=== PATIENT | male | born 1955 | race Caucasian/White ===

== ENCOUNTER 2022-11-22 17:02 | Inpatient (IN) | payer OTHER ==
[~2022-11-22] VITALS: Ht 175.3 cm; Wt 87.7 kg
[2022-11-22] MEDS: ACETAMINOPHEN 1000 MG/100 ML IV SCH ×2 (17:53→23:39)
[2022-11-22 18:04] LABS: BASOPHILS % 0.1 % (0.0-1.0); HEMATOCRIT 41.8 % (38.2-49.6); HEMOGLOBIN 13.9 g/dL (14.0-18.0); LYMPHOCYTES # (AUTO) 0.9 (1.0-3.2); LYMPHOCYTES % 4.2 % (18.0-39.1); MEAN CORPUSCULAR HEMOGLOBIN 30.5 pg (28-32); MEAN CORPUSCULAR HGB CONC 33.3 g/dL (31-35); MEAN CORPUSCULAR VOLUME 91.7 fL (81-99); MONOCYTES # (AUTO) 1.3 (0.2-0.8); MONOCYTES % 6.1 % (4.4-11.3); NEUTROPHILS # (AUTO) 19.4 (2.1-6.9); PLATELET COUNT 193 x10e3/uL (140-360); RED BLOOD COUNT 4.56 x10e6/uL (4.3-5.7); RED CELL DISTRIBUTION WIDTH 12.8 % (11.7-14.4)
[2022-11-22 18:24] LABS: ALBUMIN 3.2 g/dL (3.5-5.0); ALBUMIN/GLOBULIN RATIO 0.8 (0.8-2.0); ANION GAP 15.6 mmol/L (8-16); CALCIUM 8.8 mg/dL (8.4-10.2); CREATININE, SERUM 1.29 mg/dL (0.72-1.25); POTASSIUM 4.6 mmol/L (3.5-5.1)
[2022-11-22 18:37] LABS: CLARITY,URINE SL CLOUDY (CLEAR); COLOR,URINE YELLOW (YELLOW)
[2022-11-22 18:38] LABS: KETONES,URINE NEGATIVE (NEGATIVE); LEUKOCYTE ESTERASE ,URINE SMALL (NEGATIVE); NITRITE,URINE NEGATIVE (NEGATIVE); PROTEIN,URINE DIPSTICK >=300 (NEGATIVE); URINE UROBILINOGEN 1 mg/dL (0.2 - 1)
[2022-11-22 18:51] LABS: BACTERIA,URINE MANY /HPF; EPITHELIAL CELLS,URINE FEW /LPF; TRIPLE PHOSPHATE CRYSTAL,UR MODERATE (FEW)
[2022-11-22] MEDS ORDERED: SODIUM CHLORIDE 0.9% 1000ML 1,000 ML IV ONE (19:00)
[2022-11-22] MEDS: LORAZEPAM INJ 2 MG/ML VIAL IV PRN (19:21)
[2022-11-22] MEDS ORDERED: SODIUM CHLORIDE FLUSH 10 ML SYR INJ PRN (19:30)
[2022-11-22] MEDS ORDERED: ONDANSETRON HCL INJ 2MG/ML 2ML 2 MG/ML VIAL IV PRN (19:30)
[2022-11-23] MEDS: ACETAMINOPHEN 1000 MG/100 ML IV SCH (06:00)
[2022-11-23] MEDS: LORAZEPAM INJ 2 MG/ML VIAL IV PRN ×3 (06:11→21:48)
[2022-11-23 06:27] LABS: BASOPHILS % 0.1 % (0.0-1.0); HEMATOCRIT 42.6 % (38.2-49.6); LYMPHOCYTES # (AUTO) 1.7 (1.0-3.2); LYMPHOCYTES % 8.4 % (18.0-39.1); MEAN CORPUSCULAR HEMOGLOBIN 30.8 pg (28-32); MEAN CORPUSCULAR HGB CONC 32.9 g/dL (31-35); MEAN CORPUSCULAR VOLUME 93.8 fL (81-99); MONOCYTES # (AUTO) 1.2 (0.2-0.8); NEUTROPHILS # (AUTO) 17.2 (2.1-6.9); NEUTROPHILS % 84.8 % (38.7-80.0); PLATELET COUNT 133 x10e3/uL (140-360); RED BLOOD COUNT 4.54 x10e6/uL (4.3-5.7); RED CELL DISTRIBUTION WIDTH 12.6 % (11.7-14.4)
[2022-11-23 06:50] LABS: CALCIUM 8.5 mg/dL (8.4-10.2); CREATININE, SERUM 1.01 mg/dL (0.72-1.25)
[2022-11-23] MEDS: MEMANTINE 10 MG TAB PO SCH ×2 (08:13→16:45)
[2022-11-23] MEDS: OLANZAPINE 5 MG TAB PO SCH ×2 (08:14→17:08)
[2022-11-23] MEDS: BUSPIRONE HCL 5 MG TAB PO SCH ×3 (08:14→20:19)
[2022-11-23] MEDS ORDERED: DONEPEZIL HCL 5 MG TAB PO SCH (09:00)
[2022-11-23] MEDS ORDERED: IOPAMIDOL 370 MG/ML 100 ML INFUS..BTL INJ ONE (09:48)
[2022-11-23 10:12] LABS: BAND NEUTROPHILS % (MANUAL) 1 %; LYMPHOCYTES % (MANUAL) 9 % (19-48); MONOCYTES % (MANUAL) 9 % (3.4-9.0); NEUTROPHILS % (MANUAL) 80 % (40-74); PLATELET ESTIMATE ADEQUATE; PLATELET MORPHOLOGY COMMENT NORMAL; RBC MORPHOLOGY COMMENT NORMAL
[2022-11-23] MEDS: CEFEPIME 2 GM in SODIUM CHLORIDE 0.9% 100 ML IV SCH (18:34)
[2022-11-23] MEDS ORDERED: ACETAMINOPHEN 325 MG TAB PO PRN (19:45)
[2022-11-23] MEDS: MIRTAZAPINE 15 MG TAB PO SCH (20:19)
[2022-11-23] MEDS: ACETAMINOPHEN 325 MG TAB PO PRN (20:24)
[2022-11-24] MEDS: CEFEPIME 2 GM in SODIUM CHLORIDE 0.9% 100 ML IV SCH ×3 (01:40→16:29)
[2022-11-24] MEDS: ACETAMINOPHEN 325 MG TAB PO PRN ×2 (01:46→21:26)
[2022-11-24 05:27] LABS: BASOPHILS % 0.2 % (0.0-1.0); EOSINOPHILS # (AUTO) 0.1 (0.0-0.4); EOSINOPHILS % 1.2 % (0.0-6.0); HEMATOCRIT 42.3 % (38.2-49.6); HEMOGLOBIN 14.3 g/dL (14.0-18.0); LYMPHOCYTES # (AUTO) 0.7 (1.0-3.2); LYMPHOCYTES % 7.1 % (18.0-39.1); MEAN CORPUSCULAR HEMOGLOBIN 30.5 pg (28-32); MEAN CORPUSCULAR HGB CONC 33.8 g/dL (31-35); MEAN CORPUSCULAR VOLUME 90.2 fL (81-99); MONOCYTES # (AUTO) 0.8 (0.2-0.8); MONOCYTES % 8.6 % (4.4-11.3); NEUTROPHILS # (AUTO) 7.8 (2.1-6.9); NEUTROPHILS % 82.5 % (38.7-80.0); PLATELET COUNT 155 x10e3/uL (140-360); RED BLOOD COUNT 4.69 x10e6/uL (4.3-5.7); RED CELL DISTRIBUTION WIDTH 12.6 % (11.7-14.4)
[2022-11-24 05:46] LABS: ANION GAP 14.8 mmol/L (8-16); CALCIUM 8.4 mg/dL (8.4-10.2); CREATININE, SERUM 0.95 mg/dL (0.72-1.25); POTASSIUM 3.8 mmol/L (3.5-5.1)
[2022-11-24] MEDS ORDERED: SODIUM CHLORIDE 0.9% 250ML 250 ML ONE (08:42)
[2022-11-24] MEDS: OLANZAPINE 5 MG TAB PO SCH ×2 (09:06→16:31)
[2022-11-24] MEDS: MEMANTINE 10 MG TAB PO SCH ×2 (09:06→16:31)
[2022-11-24] MEDS: BUSPIRONE HCL 5 MG TAB PO SCH ×3 (09:06→21:25)
[2022-11-24 09:12] VITALS: BP 122/74
[2022-11-24] MEDS ORDERED: ONDANSETRON HCL 4 MG ORAL DISINTEGRATING TAB PO PRN (11:15)
[2022-11-24 12:04] VITALS: BP 119/53
[2022-11-24] MEDS ORDERED: BUSPIRONE HCL5 MG PO (14:00)
[2022-11-24] MEDS ORDERED: OLANZAPINE5 MG PO (14:00)
[2022-11-24] MEDS ORDERED: NAMENDA5 MG PO (14:00)
[2022-11-24] MEDS ORDERED: GERI-MOX ANTAC355 ML PO (14:00)
[2022-11-24] MEDS ORDERED: TYLENOL325 MG PO (14:00)
[2022-11-24] MEDS ORDERED: VITAMIN B-1100 M1 PO (14:00)
[2022-11-24] MEDS ORDERED: MIRTAZAPINE15 MG PO (14:00)
[2022-11-24] MEDS ORDERED: FOLIC ACID0.4 MG PO (14:00)
[2022-11-24] MEDS ORDERED: MILK OF MA2400 MG/10 PO (14:00)
[2022-11-24] MEDS ORDERED: VALPROIC A250 MG/5 M PO (14:00)
[2022-11-24] MEDS ORDERED: DONEPEZIL HCL10 MG PO (14:00)
[2022-11-24] MEDS: LORAZEPAM INJ 2 MG/ML VIAL IV PRN ×2 (14:51→22:26)
[2022-11-24] MEDS: TAMSULOSIN HCL 0.4 MG CAP PO SCH (16:31)
[2022-11-24 20:00] VITALS: BP 140/74
[2022-11-24] MEDS: MIRTAZAPINE 15 MG TAB PO SCH (21:25)
[2022-11-24] MEDS: DONEPEZIL HCL 5 MG TAB PO SCH (21:25)
[2022-11-25] VITALS: BP 134/84
[2022-11-25] MEDS: CEFEPIME 2 GM in SODIUM CHLORIDE 0.9% 100 ML IV SCH ×2 (02:32→10:53)
[2022-11-25 05:00] VITALS: BP 151/87
[2022-11-25 07:21] VITALS: BP 144/91
[2022-11-25] MEDS: MEMANTINE 10 MG TAB PO SCH ×2 (10:45→17:36)
[2022-11-25] MEDS: BUSPIRONE HCL 5 MG TAB PO SCH ×3 (10:47→22:37)
[2022-11-25] MEDS: OLANZAPINE 5 MG TAB PO SCH ×2 (10:47→17:36)
[2022-11-25 10:58] VITALS: BP 144/91
[2022-11-25] MEDS: LORAZEPAM INJ 2 MG/ML VIAL IV PRN (17:36)
[2022-11-25] MEDS: TAMSULOSIN HCL 0.4 MG CAP PO SCH (17:36)
[2022-11-25 20:00] VITALS: BP 132/81
[2022-11-25] MEDS: DONEPEZIL HCL 5 MG TAB PO SCH (22:37)
[2022-11-25] MEDS: MIRTAZAPINE 15 MG TAB PO SCH (22:37)
[2022-11-25] MEDS: CEFAZOLIN SODIUM 2 GM in SODIUM CHLORIDE 0.9% 100 ML IV SCH (22:39)
[2022-11-25 23:57] VITALS: BP 136/86
[2022-11-26] VITALS (7 sets, daily range): BP systolic 121–136; BP diastolic 74–86
[2022-11-26] MEDS: DONEPEZIL HCL 5 MG TAB PO SCH (01:48)
[2022-11-26] MEDS: BUSPIRONE HCL 5 MG TAB PO SCH ×3 (01:48→20:52)
[2022-11-26] MEDS: MIRTAZAPINE 15 MG TAB PO SCH (01:49)
[2022-11-26] MEDS: CEFAZOLIN SODIUM 2 GM in SODIUM CHLORIDE 0.9% 100 ML IV SCH ×3 (05:39→20:47)
[2022-11-26] MEDS: MEMANTINE 10 MG TAB PO SCH ×2 (10:39→16:08)
[2022-11-26] MEDS: OLANZAPINE 5 MG TAB PO SCH ×2 (10:39→16:08)
[2022-11-26] MEDS: LORAZEPAM INJ 2 MG/ML VIAL IV PRN (15:59)
[2022-11-26] MEDS: TAMSULOSIN HCL 0.4 MG CAP PO SCH (16:08)
[2022-11-27] VITALS: BP 129/72
[2022-11-27] MEDS: CEFAZOLIN SODIUM 2 GM in SODIUM CHLORIDE 0.9% 100 ML IV SCH ×4 (06:23→20:20)
[2022-11-27 08:21] VITALS: BP 109/71
[2022-11-27 08:22] VITALS: BP 109/71
[2022-11-27] MEDS: BUSPIRONE HCL 5 MG TAB PO SCH ×3 (08:56→20:20)
[2022-11-27] MEDS: MEMANTINE 10 MG TAB PO SCH ×2 (08:56→16:24)
[2022-11-27] MEDS: OLANZAPINE 5 MG TAB PO SCH ×2 (08:57→16:24)
[2022-11-27 11:20] LABS: BASOPHILS % 0.3 % (0.0-1.0); EOSINOPHILS # (AUTO) 0.2 (0.0-0.4); EOSINOPHILS % 2.1 % (0.0-6.0); HEMATOCRIT 39.7 % (38.2-49.6); HEMOGLOBIN 13.3 g/dL (14.0-18.0); LYMPHOCYTES # (AUTO) 1.5 (1.0-3.2); LYMPHOCYTES % 21.2 % (18.0-39.1); MEAN CORPUSCULAR HEMOGLOBIN 30.2 pg (28-32); MEAN CORPUSCULAR HGB CONC 33.5 g/dL (31-35); MEAN CORPUSCULAR VOLUME 90.2 fL (81-99); MONOCYTES # (AUTO) 0.7 (0.2-0.8); MONOCYTES % 9.2 % (4.4-11.3); NEUTROPHILS # (AUTO) 4.7 (2.1-6.9); NEUTROPHILS % 66.5 % (38.7-80.0); PLATELET COUNT 217 x10e3/uL (140-360); RED CELL DISTRIBUTION WIDTH 12.4 % (11.7-14.4)
[2022-11-27 11:37] LABS: ANION GAP 15.1 mmol/L (8-16); CALCIUM 8.4 mg/dL (8.4-10.2); CREATININE, SERUM 0.95 mg/dL (0.72-1.25); POTASSIUM 4.1 mmol/L (3.5-5.1)
[2022-11-27 16:00] VITALS: BP 115/77
[2022-11-27] MEDS: TAMSULOSIN HCL 0.4 MG CAP PO SCH (16:24)
[2022-11-27 20:16] VITALS: BP 124/75
[2022-11-27] MEDS: MIRTAZAPINE 15 MG TAB PO SCH (20:20)
[2022-11-27] MEDS: DONEPEZIL HCL 5 MG TAB PO SCH (20:20)
[2022-11-27 21:00] VITALS: BP 124/75
[2022-11-27] MEDS: LORAZEPAM INJ 2 MG/ML VIAL IV PRN (22:43)
[2022-11-28] VITALS (7 sets, daily range): BP systolic 109–132; BP diastolic 65–87
[2022-11-28] MEDS: CEFAZOLIN SODIUM 2 GM in SODIUM CHLORIDE 0.9% 100 ML IV SCH ×2 (06:14→14:58)
[2022-11-28] MEDS: MEMANTINE 10 MG TAB PO SCH ×2 (08:57→17:25)
[2022-11-28] MEDS: ASPIRIN 81 MG ENTERIC COATED PO SCH (08:57)
[2022-11-28] MEDS: OLANZAPINE 5 MG TAB PO SCH ×2 (08:57→17:25)
[2022-11-28] MEDS: BUSPIRONE HCL 5 MG TAB PO SCH ×3 (08:57→20:22)
[2022-11-28] MEDS: LORAZEPAM INJ 2 MG/ML VIAL IV PRN (14:46)
[2022-11-28] MEDS: TAMSULOSIN HCL 0.4 MG CAP PO SCH (17:25)
[2022-11-28] MEDS: MIRTAZAPINE 15 MG TAB PO SCH (20:22)
[2022-11-28] MEDS: DONEPEZIL HCL 5 MG TAB PO SCH (20:22)
[2022-11-29] VITALS: BP 121/84
[2022-11-29] MEDS: CEFAZOLIN SODIUM 2 GM in SODIUM CHLORIDE 0.9% 100 ML IV SCH ×3 (00:03→06:59)
[2022-11-29 01:12] VITALS: BP 121/89
[2022-11-29 04:00] VITALS: BP 132/77
[2022-11-29] MEDS: OLANZAPINE 5 MG TAB PO SCH (08:25)
[2022-11-29] MEDS: MEMANTINE 10 MG TAB PO SCH (08:25)
[2022-11-29] MEDS: BUSPIRONE HCL 5 MG TAB PO SCH (08:25)
[2022-11-29] MEDS: ASPIRIN 81 MG ENTERIC COATED PO SCH (08:27)
[2022-11-29 08:35] VITALS: BP 131/87
[2022-11-29 08:37] VITALS: BP 131/87
== END 2022-11-29 12:35 | disposition hospice, home (50) | DRG 871 ==
LOC: ER 17:06 → ERHOLD 19:21 → MED/SURG2 11-23 18:53 → ERHOLD 11-23 20:24 → MED/SURG 11-24 08:00
PROVIDERS: ADMIT Internal Medicine; ATTEND Internal Medicine
DX: A41.59 Other Gram-negative sepsis (principal); G92.9 Unspecified toxic encephalopathy; R47.01 Aphasia; N39.0 Urinary tract infection, site not specified; N12 Tubulo-interstitial nephritis, not specified as acute or chronic; I82.611 Acute embolism and thrombosis of superficial veins of right upper extremity; R65.20 Severe sepsis without septic shock; E87.8 Other disorders of electrolyte and fluid balance, not elsewhere classified; R00.0 Tachycardia, unspecified; G30.9 Alzheimer's disease, unspecified; F02.80 Dementia in other diseases classified elsewhere, unspecified severity, without behavioral disturbance, psychotic disturbance, mood disturbance, and anxiety; B96.4 Proteus (mirabilis) (morganii) as the cause of diseases classified elsewhere; Z20.822 Contact with and (suspected) exposure to COVID-19
CPT/HCPCS: 0223U; 36415; 71045; 74177; 80048; 80053; 81001; 83605; 84484; 85025; 87040; 87071; 87086; 87186; 87205; 93005; 93971; 99284; J0692; J2060; J7050; Q9967